=== PATIENT | female | born 1965 | race Caucasian/White ===

== ENCOUNTER 2021-06-05 17:37 | Outpatient (REF) | payer SELFPAY ==
[2021-06-05 22:08] LABS: HGB 13.2 g/dL (11.2-15.7); MCH 28.1 pg (27.0-33.0); MCHC 31.4 % (32.0-36.0); MCV 89.6 fL (80-95); MPV 11.4 fL (8.0-11.0); Platelet Count 257 10^3/uL (130-400); RBC 4.69 10^6/uL (3.93-5.22); RDW 13.6 % (11.7-14.6); RDW-SD 44.5 fL; WBC 7.81 10^3/uL (4.4-10.8)
[2021-06-05 22:56] LABS: C-Reactive Protein 0.57 mg/dL (0.0-0.3)
[2021-06-07 10:21] LABS: Lyme Ab w Rflx to Lyme Confirm Negative (Negative)
[2021-06-08 17:23] LABS: Anaplasma phagocytophilum Negative (Negative); B. miyamotoi PCR Negative (Negative); Babesia divergens/MO-1 Negative (Negative); Babesia duncani Negative (Negative); Babesia microti Negative (Negative); Ehrlichia chaffeensis Negative (Negative); Ehrlichia ewingii/canis Negative (Negative); Ehrlichia muris eauclairensis Negative (Negative)
== END 2021-06-05 17:38 | disposition home or self-care (01) ==
LOC: NCHCN 17:37
PROVIDERS: Visit Provider Nurse Practitioner Family
DX: R51.9 Headache, unspecified (principal); R20.3 Hyperesthesia
CPT/HCPCS: 85027; 87798; 84443; 86140; 86618